=== PATIENT | female | born 1985 | race Caucasian/White ===

== ENCOUNTER 2023-12-15 13:20 | Inpatient (IN) | payer OTHER ==
[2023-12-15 13:27] VITALS: BMI 22.3
[2023-12-15] MEDS ORDERED: BISMUTH SUBSALICYLATE 524 MG/30 ML PO PRN (14:39)
[2023-12-15] MEDS ORDERED: POLYETHYLENE GLYCOL (HEALTHYLAX) 3350 17 GM PACKET PO PRN (14:39)
[2023-12-15] MEDS ORDERED: MAG HYDROX/AL HYDROX/SIMETH 30 ML UNIT-DOSE CUP PO PRN (14:39)
[2023-12-15] MEDS ORDERED: traZODone HCL 50 MG TABLET (FP) PO PRN ×2 (14:39→23:11)
[2023-12-15] MEDS ORDERED: NALOXONE HCL 0.4 MG/ML VIAL IM PRN (14:39)
[2023-12-15] MEDS ORDERED: MAGNESIUM HYDROX 2400MG/30ML ORAL SUSPENSION 30 ML CUP PO PRN (14:39)
[2023-12-15] MEDS ORDERED: NALOXONE HCL (KLOXXADO) 8 MG SPRAY NS PRN (14:39)
[2023-12-15] MEDS ORDERED: guaiFENesin 600 MG TABLET.ER (FP) PO PRN (14:39)
[2023-12-15] MEDS ORDERED: BENZOCAINE/MENTHOL (CHLORASEPTIC ) LOZENGE MM PRN (14:39)
[2023-12-15] MEDS ORDERED: hydrOXYzine PAMOATE 25 MG CAPSULE (FP) PO PRN (14:39)
[2023-12-15] MEDS ORDERED: IBUPROFEN 400 MG TABLET (FP) PO PRN (14:39)
[2023-12-15] MEDS ORDERED: LOPERAMIDE HCL 2 MG CAPSULE PO PRN (14:39)
[2023-12-15] MEDS ORDERED: BENZONATATE 200 MG CAPSULE PO PRN (14:39)
[2023-12-15] MEDS ORDERED: EPINEPHrine/PF 1 MG/1 ML (1:1,000) AMPULE IM PRN ×2 (14:44→15:40)
[2023-12-15] MEDS: BUPRENORPHINE/NALOXONE 0.5 MG/0.125 MG FILM SL ONE ×2 (15:23→22:35)
[2023-12-15] MEDS: methaDONE HCL 10 MG TABLET (FOR DETOX USE ONLY) PO ONE (15:23)
[2023-12-15] MEDS: diphenhydrAMINE HCL 25 MG CAPSULE (FP) PO SCH (16:02)
[2023-12-15] MEDS: PRENATAL VITAMINS W/ FOLIC ACID TABLET (FP) PO SCH (16:02)
[2023-12-15] MEDS: cloNIDine HCL 0.1 MG TABLET PO SCH (17:42)
[2023-12-15] MEDS: THIAMINE HCL 100 MG TABLET (FP) PO SCH (22:35)
[2023-12-15] MEDS: MELATONIN 5 MG TABLETS PO SCH (22:40)
[2023-12-16] MEDS: BUPRENORPHINE/NALOXONE 0.5 MG/0.125 MG FILM SL SCH (09:34)
[2023-12-16] MEDS: METHOCARBAMOL 500 MG TABLET PO PRN (14:56)
[2023-12-16] MEDS: IBUPROFEN 600 MG TABLET (FP) PO PRN (17:53)
[2023-12-17] MEDS: ACETAMINOPHEN 325 MG TABLET (FP) PO PRN (00:15)
[2023-12-17] MEDS: MELATONIN 5 MG TABLETS PO ONE (03:30)
[2023-12-17] MEDS: methaDONE HCL 10 MG TABLET (FOR DETOX USE ONLY) PO ONE (09:00)
[2023-12-17] MEDS: BUPRENORPHINE/NALOXONE 2 MG/0.5 MG FILM PACKET SL SCH (09:05)
[2023-12-17] MEDS ORDERED: methaDONE HCL 10 MG TABLET (FOR DETOX USE ONLY) PO ONE (10:00)
[2023-12-17] MEDS: diphenhydrAMINE HCL 25 MG CAPSULE (FP) PO PRN (14:21)
[2023-12-18] MEDS: DICYCLOMINE HCL 10 MG CAPSULE PO PRN (05:28)
[2023-12-18] MEDS: BUPRENORPHINE/NALOXONE 4 MG/1 MG FILM PACKET SL SCH (09:59)
[2023-12-19] MEDS: methaDONE HCL 10 MG TABLET (FOR DETOX USE ONLY) PO ONE (05:30)
[2023-12-19] MEDS: BUPRENORPHINE/NALOXONE 8 MG/2 MG FILM PACKET SL SCH ×2 (09:02→13:31)
[2023-12-19] MEDS ORDERED: methaDONE HCL 10 MG TABLET (FOR DETOX USE ONLY) PO ONE (10:00)
[2023-12-19 12:34] LABS: BASO % 0.7 % (0-2.0); EOS % 0.9 % (0-4.5); HEMATOCRIT 35.5 % (32.4-45.2); HEMOGLOBIN 11.5 GM/dL (10.7-15.3); LYMPH % 24.4 % (8-40); MCHC 32.3 g/dl (32.0-36.0); MEAN CELL VOLUME 80.5 fl (80-96); MONO % 7.3 % (3.8-10.2); NEUT % 66.7 % (42.8-82.8); PLATELET COUNT 269 10^3/uL (134-434); RBC 4.41 M/mm3 (3.60-5.2); RDW 15.2 % (11.6-15.6); WHITE BLOOD COUNT 3.8 K/mm3 (4.0-10.0)
[2023-12-19 13:19] LABS: POTASSIUM 4.3 mmol/L (3.5-5.1)
[2023-12-19 13:22] LABS: BLOOD UREA NITROGEN 13.2 mg/dL (7-18); CALCIUM 8.5 mg/dL (8.5-10.1)
[2023-12-19 13:25] LABS: CREATININE 0.6 mg/dL (0.55-1.3)
[2023-12-19 13:26] LABS: BILIRUBIN,TOTAL 0.2 mg/dL (0.2-1)
[2023-12-19 13:27] LABS: TOT PROT 8.4 g/dl (6.4-8.2)
[2023-12-20] MEDS ORDERED: BUPRENORPHINE/NALOXONE 8 MG/2 MG FILM PACKET SL ONE (10:00)
[2023-12-20] MEDS: BUPRENORPHINE/NALOXONE 8 MG/2 MG FILM PACKET SL ONE ×2 (13:42→18:32)
[2023-12-20] MEDS: ONDANSETRON *ODT* 4 MG TABLET SL PRN (18:51)
[2023-12-21] MEDS: BUPRENORPHINE/NALOXONE 12 MG-3 MG SL FILM PACKET SL ONE (05:31)
[2023-12-21] MEDS ORDERED: BUPRENORPHINE/NALOXONE 8 MG/2 MG FILM PACKET SL ONE (06:00)
[2023-12-21 07:12] VITALS: BP 149/75; PULSE 81; RESP 16; TEMP 97.6
== END 2023-12-21 09:17 | disposition home or self-care (01) | DRG 773 ==
LOC: YASAS 13:20 → Y6N 15:11
PROVIDERS: ADMIT Allergy & Immunology; ATTEND Surgery
PROC: HZ2ZZZZ Detoxification Services for Substance Abuse Treatment (ICD-10-PCS; principal; 2023-12-15)
DX: F11.23 Opioid dependence with withdrawal (principal); F14.20 Cocaine dependence, uncomplicated; F16.20 Hallucinogen dependence, uncomplicated; F19.280 Other psychoactive substance dependence with psychoactive substance-induced anxiety disorder; F19.24 Other psychoactive substance dependence with psychoactive substance-induced mood disorder; F43.10 Post-traumatic stress disorder, unspecified; G47.00 Insomnia, unspecified; M54.50 Low back pain, unspecified; G89.29 Other chronic pain; R76.8 Other specified abnormal immunological findings in serum; Z87.891 Personal history of nicotine dependence; Z91.410 Personal history of adult physical and sexual abuse; Z59.00 Homelessness unspecified; Z88.8 Allergy status to other drugs, medicaments and biological substances
CPT/HCPCS: 36415; 80053; 80305; 80307; 81025; 85025; 86780; 86803; 87522; 93005; 93010; Q0162

== ENCOUNTER 2024-02-09 15:00 | Inpatient (IN) | payer OTHER ==
[2024-02-09 15:24] VITALS: BMI 20.3
[2024-02-09] MEDS ORDERED: ACETAMINOPHEN 325 MG TABLET (FP) PO PRN (15:39)
[2024-02-09] MEDS ORDERED: NALOXONE HCL (KLOXXADO) 8 MG SPRAY NS PRN (15:39)
[2024-02-09] MEDS ORDERED: DICYCLOMINE HCL 10 MG CAPSULE PO PRN (15:39)
[2024-02-09] MEDS ORDERED: BENZONATATE 200 MG CAPSULE PO PRN (15:39)
[2024-02-09] MEDS ORDERED: IBUPROFEN 400 MG TABLET (FP) PO PRN (15:39)
[2024-02-09] MEDS ORDERED: BENZOCAINE/MENTHOL (CHLORASEPTIC ) LOZENGE MM PRN (15:39)
[2024-02-09] MEDS ORDERED: MAG HYDROX/AL HYDROX/SIMETH 30 ML UNIT-DOSE CUP PO PRN (15:39)
[2024-02-09] MEDS ORDERED: MAGNESIUM HYDROX 2400MG/30ML ORAL SUSPENSION 30 ML CUP PO PRN (15:39)
[2024-02-09] MEDS ORDERED: POLYETHYLENE GLYCOL (HEALTHYLAX) 3350 17 GM PACKET PO PRN (15:39)
[2024-02-09] MEDS ORDERED: guaiFENesin 600 MG TABLET.ER (FP) PO PRN (15:39)
[2024-02-09] MEDS ORDERED: IBUPROFEN 600 MG TABLET (FP) PO PRN (15:39)
[2024-02-09] MEDS ORDERED: NALOXONE HCL 0.4 MG/ML VIAL IM PRN (15:39)
[2024-02-09] MEDS ORDERED: PRENATAL VITAMINS W/ FOLIC ACID TABLET (FP) PO ONE (16:42)
[2024-02-09] MEDS ORDERED: methaDONE HCL 10 MG TABLET (FOR DETOX USE ONLY) ONE (16:42)
[2024-02-09] MEDS: PRENATAL VITAMINS W/ FOLIC ACID TABLET (FP) PO SCH (16:53)
[2024-02-09] MEDS: methaDONE HCL 10 MG TABLET PO ONE (16:53)
[2024-02-09] MEDS: hydrOXYzine PAMOATE 25 MG CAPSULE (FP) PO PRN (17:36)
[2024-02-09] MEDS: cloNIDine HCL 0.1 MG TABLET PO SCH (17:36)
[2024-02-09] MEDS: NICOTINE 21 MG/24 HOURS TOPICAL PATCH TD SCH (17:36)
[2024-02-09] MEDS: METHOCARBAMOL 500 MG TABLET PO PRN (17:37)
[2024-02-09] MEDS ORDERED: methaDONE HCL 10 MG TABLET PO PRN (17:39)
[2024-02-09] MEDS: MELATONIN 5 MG TABLETS PO SCH (22:11)
[2024-02-09] MEDS: THIAMINE 100 MG TABLET PO SCH (22:11)
[2024-02-10] MEDS: methaDONE 40 MG, methaDONE 10 MG PO ONE (09:54)
[2024-02-10] MEDS: diazePAM 5 MG TABLET PO PRN (10:50)
[2024-02-11] MEDS: cloNIDine HCL 0.1 MG TABLET PO PRN (05:48)
[2024-02-11] MEDS: methaDONE 40 MG, methaDONE 20 MG PO ONE (09:05)
[2024-02-11 12:07] LABS: POTASSIUM 3.4 mmol/L (3.5-5.1)
[2024-02-11 12:09] LABS: CALCIUM 8.6 mg/dL (8.5-10.1)
[2024-02-11 12:10] LABS: ALBUMIN 2.5 g/dl (3.4-5.0); BLOOD UREA NITROGEN 11.8 mg/dL (7-18)
[2024-02-11 12:13] LABS: CREATININE 0.7 mg/dL (0.55-1.3)
[2024-02-11 12:14] LABS: BILIRUBIN,TOTAL 0.2 mg/dL (0.2-1); TOT PROT 7.2 g/dl (6.4-8.2)
[2024-02-11] MEDS: POTASSIUM CHLORIDE ORAL LIQUID 20 MEQ/15 ML PO ONE (18:17)
[2024-02-12] MEDS: methaDONE 40 MG, methaDONE 30 MG PO ONE (09:08)
[2024-02-12] MEDS: LOPERAMIDE HCL 2 MG CAPSULE PO PRN (09:27)
[2024-02-12] MEDS: HYDROCORTISONE 1% TOPICAL CREAM 30 GM TUBE TP SCH (13:53)
[2024-02-13] MEDS: ONDANSETRON *ODT* 4 MG TABLET SL PRN (01:17)
[2024-02-13] MEDS: methaDONE HCL 40 MG DISPERSABLE TABLET PO ONE (09:27)
[2024-02-13] MEDS: diazePAM 5 MG TABLET PO ONE (13:45)
[2024-02-13] MEDS: BISMUTH SUBSALICYLATE 524 MG/30 ML PO PRN (20:44)
[2024-02-13] MEDS: cloNIDine HCL 0.1 MG TABLET PO PRN (22:07)
[2024-02-14] MEDS: methaDONE 80 MG, methaDONE 10 MG PO ONE (09:22)
[2024-02-14] MEDS: CLINDAMYCIN HCL 150 MG CAPSULE (FP) PO SCH (13:05)
[2024-02-14 13:14] VITALS: BP 101/54; PULSE 82; RESP 16; TEMP 97.1
== END 2024-02-14 13:20 | disposition other institution (70) | DRG 773 ==
LOC: YASAS 15:00 → Y6N 16:19
PROVIDERS: ADMIT Allergy & Immunology; ATTEND Surgery
PROC: HZ2ZZZZ Detoxification Services for Substance Abuse Treatment (ICD-10-PCS; principal; 2024-02-09)
DX: F11.23 Opioid dependence with withdrawal (principal); F14.20 Cocaine dependence, uncomplicated; F19.282 Other psychoactive substance dependence with psychoactive substance-induced sleep disorder; F19.280 Other psychoactive substance dependence with psychoactive substance-induced anxiety disorder; F41.9 Anxiety disorder, unspecified; E87.6 Hypokalemia; L02.414 Cutaneous abscess of left upper limb; M54.2 Cervicalgia; M54.50 Low back pain, unspecified; G89.29 Other chronic pain; Z87.891 Personal history of nicotine dependence; Z88.0 Allergy status to penicillin; Z88.8 Allergy status to other drugs, medicaments and biological substances
CPT/HCPCS: 36415; 80053; 80305; 80307; 81025; 84132; 86780; 87811; 93005; 93010; Q0162

== ENCOUNTER 2024-02-14 13:37 | Inpatient (IN) | payer OTHER ==
[2024-02-14] MEDS ORDERED: POLYETHYLENE GLYCOL (HEALTHYLAX) 3350 17 GM PACKET PO PRN (16:04)
[2024-02-14] MEDS ORDERED: P-EPHED 60MG/TRIPROLIDI 2.5MG TABLET PO PRN (16:04)
[2024-02-14] MEDS ORDERED: BENZONATATE 200 MG CAPSULE PO PRN (16:04)
[2024-02-14] MEDS ORDERED: NALOXONE (NARCAN) HCL 4 MG/0.1 ML SPRAY NS PRN (16:04)
[2024-02-14] MEDS ORDERED: guaiFENesin 600 MG TABLET.ER (FP) PO PRN (16:04)
[2024-02-14] MEDS ORDERED: NALOXONE HCL 0.4 MG/ML VIAL IVPUSH PRN (16:04)
[2024-02-14] MEDS ORDERED: ACETAMINOPHEN 325 MG TABLET (FP) PO PRN (16:04)
[2024-02-14] MEDS ORDERED: BENZOCAINE/MENTHOL (CHLORASEPTIC ) LOZENGE MM PRN (16:04)
[2024-02-14] MEDS ORDERED: MAGNESIUM HYDROX 2400MG/30ML ORAL SUSPENSION 30 ML CUP PO PRN (16:04)
[2024-02-14] MEDS ORDERED: DOCUSATE SODIUM 100 MG CAPSULE (FP) PO PRN (16:04)
[2024-02-14] MEDS ORDERED: NICOTINE 21 MG/24 HOURS TOPICAL PATCH TD PRN (16:39)
[2024-02-14] MEDS: OLANZapine 5 MG TABLET PO ONE (17:40)
[2024-02-14] MEDS: CLINDAMYCIN HCL 150 MG CAPSULE (FP) PO SCH (17:48)
[2024-02-14] MEDS: MELATONIN 5 MG TABLETS PO SCH (21:12)
[2024-02-14] MEDS: THIAMINE 100 MG TABLET PO SCH (21:13)
[2024-02-14] MEDS: OLANZapine 5 MG TABLET PO SCH (21:13)
[2024-02-15] MEDS ORDERED: methaDONE HCL 10 MG TABLET PO SCH (06:00)
[2024-02-15] MEDS: methaDONE 80 MG, methaDONE 10 MG PO SCH (06:25)
[2024-02-15] MEDS: hydrOXYzine PAMOATE 25 MG CAPSULE (FP) PO PRN (06:26)
[2024-02-15] MEDS: METHOCARBAMOL 500 MG TABLET PO PRN (10:46)
[2024-02-15] MEDS: PRENATAL VITAMINS W/ FOLIC ACID TABLET (FP) PO SCH (10:46)
[2024-02-15] MEDS ORDERED: OLANZapine 5 MG TABLET PO SCH (10:47)
[2024-02-15] MEDS: LOPERAMIDE HCL 2 MG CAPSULE PO PRN (10:51)
[2024-02-15] MEDS: CLINDAMYCIN PHOSPHATE 1% TOPICAL GEL 30 GM TUBE TP SCH (16:02)
[2024-02-15] MEDS: hydrOXYzine PAMOATE 50 MG CAPSULE (FP) PO PRN (17:23)
[2024-02-15] MEDS: BACLOFEN 10 MG TABLET (FP) PO SCH (21:12)
[2024-02-15] MEDS: OLANZapine 10 MG TABLET PO SCH (21:12)
[2024-02-15] MEDS: MAG HYDROX/AL HYDROX/SIMETH 30 ML UNIT-DOSE CUP PO PRN (23:28)
[2024-02-16 10:26] LABS: BASO % 0.3 % (0-2.0); EOS % 0.6 % (0-4.5); HEMATOCRIT 30.6 % (32.4-45.2); HEMOGLOBIN 10.4 GM/dL (10.7-15.3); LYMPH % 36.7 % (8-40); MCH 27.1 pg (25.7-33.7); MCHC 33.9 g/dl (32.0-36.0); MEAN PLT VOLUME 7.7 fl (7.5-11.1); MONO % 11.1 % (3.8-10.2); NEUT % 51.3 % (42.8-82.8); PLATELET COUNT 305 10^3/uL (134-434); RBC 3.83 M/mm3 (3.60-5.2); RDW 16.5 % (11.6-15.6)
[2024-02-16] MEDS: BISMUTH SUBSALICYLATE 262 MG/15 ML BTL PO PRN (17:38)
[2024-02-16] MEDS: IBUPROFEN 600 MG TABLET (FP) PO PRN (21:37)
[2024-02-16] MEDS: OLANZapine 7.5 MG TABLET PO SCH (21:42)
[2024-02-17] MEDS: GABAPENTIN 100 MG CAPSULE PO SCH (21:07)
[2024-02-22] MEDS: OLANZapine 10 MG TABLET PO SCH (22:03)
[2024-02-24] MEDS: GABAPENTIN 300 MG CAPSULE PO SCH (21:06)
[2024-02-25] MEDS: GABAPENTIN 100 MG CAPSULE PO SCH (05:46)
[2024-02-26] MEDS: IBUPROFEN 400 MG TABLET (FP) PO PRN (10:38)
[2024-02-26] MEDS: CLINDAMYCIN HCL 150 MG CAPSULE (FP) PO SCH (18:06)
[2024-02-26] MEDS: AZITHROMYCIN 250 MG TABLET PO ONE (22:35)
[2024-02-27] MEDS: AZITHROMYCIN 250 MG TABLET PO SCH (10:27)
[2024-03-02 00:28] LABS: HIV INTERPRETATION PRESUMPTIVE POSITIVE (NEGATIVE)
[2024-03-08 06:41] VITALS: RESP 18
[2024-03-12 06:50] VITALS: BP 106/67; PULSE 87; TEMP 97.1
== END 2024-03-12 10:15 | disposition home or self-care (01) | DRG 772 ==
LOC: YASAS 13:37 → Y5N 13:38
PROVIDERS: ADMIT Allergy & Immunology; ATTEND Psychiatry & Neurology Pain Medicine
PROC: HZ42ZZZ Group Counseling for Substance Abuse Treatment, Cognitive-Behavioral (ICD-10-PCS; principal; 2024-02-14)
DX: F11.20 Opioid dependence, uncomplicated (principal); F14.20 Cocaine dependence, uncomplicated; F17.210 Nicotine dependence, cigarettes, uncomplicated; F20.0 Paranoid schizophrenia; F22 Delusional disorders; F41.9 Anxiety disorder, unspecified; F32.A Depression, unspecified; F43.10 Post-traumatic stress disorder, unspecified; Z21 Asymptomatic human immunodeficiency virus [HIV] infection status; H66.91 Otitis media, unspecified, right ear; K21.9 Gastro-esophageal reflux disease without esophagitis; L02.414 Cutaneous abscess of left upper limb; M54.50 Low back pain, unspecified; G89.29 Other chronic pain; R76.8 Other specified abnormal immunological findings in serum; Z59.01 Sheltered homelessness; S09.8XXD Other specified injuries of head, subsequent encounter; S09.93XD Unspecified injury of face, subsequent encounter; W19.XXXD Unspecified fall, subsequent encounter
CPT/HCPCS: 36415; 85025; 86359; 86360; 87389; 87536; 93005; 93010; J0475

== ENCOUNTER 2025-02-28 09:25 | Inpatient (IN) | payer OTHER ==
[2025-02-28 09:39] VITALS: BMI 29.1
[2025-02-28] MEDS ORDERED: MAG HYDROX/AL HYDROX/SIMETH 30 ML UNIT-DOSE CUP PO PRN (09:57)
[2025-02-28] MEDS ORDERED: POLYETHYLENE GLYCOL (HEALTHYLAX) 3350 17 GM PACKET PO PRN (09:57)
[2025-02-28] MEDS ORDERED: ACETAMINOPHEN 325 MG TABLET (FP) PO PRN (09:57)
[2025-02-28] MEDS ORDERED: guaiFENesin 600 MG TABLET.ER (FP) PO PRN (09:57)
[2025-02-28] MEDS ORDERED: BISMUTH SUBSALICYLATE 262 MG/15 ML BTL PO PRN (09:57)
[2025-02-28] MEDS ORDERED: IBUPROFEN 400 MG TABLET (FP) PO PRN (09:57)
[2025-02-28] MEDS ORDERED: BENZONATATE 200 MG CAPSULE PO PRN (09:57)
[2025-02-28] MEDS ORDERED: MAGNESIUM HYDROX 2400MG/30ML ORAL SUSPENSION 30 ML CUP PO PRN (09:57)
[2025-02-28] MEDS ORDERED: LOPERAMIDE HCL 2 MG CAPSULE PO PRN (09:57)
[2025-02-28] MEDS ORDERED: NALOXONE (NARCAN) HCL 4 MG/0.1 ML SPRAY NS PRN (09:57)
[2025-02-28] MEDS ORDERED: hydrOXYzine PAMOATE 25 MG CAPSULE (FP) PO PRN (09:57)
[2025-02-28] MEDS ORDERED: BENZOCAINE/MENTHOL (CHLORASEPTIC ) LOZENGE MM PRN (09:57)
[2025-02-28] MEDS ORDERED: DICYCLOMINE HCL 10 MG CAPSULE PO PRN (09:57)
[2025-02-28] MEDS ORDERED: diazePAM 5 MG TABLET ONE (10:41)
[2025-02-28] MEDS ORDERED: levETIRAcetam 500 MG TABLET (FP) PO ONE (10:42)
[2025-02-28] MEDS ORDERED: methaDONE HCL 10 MG TABLET (FOR DETOX USE ONLY) ONE (10:42)
[2025-02-28] MEDS ORDERED: PRENATAL VITAMINS W/ FOLIC ACID TABLET (FP) PO ONE (10:43)
[2025-02-28] MEDS ORDERED: cloNIDine HCL 0.1 MG TABLET ONE (10:43)
[2025-02-28] MEDS: PRENATAL VITAMINS W/ FOLIC ACID TABLET (FP) PO SCH (10:45)
[2025-02-28] MEDS: cloNIDine HCL 0.1 MG TABLET PO SCH (10:45)
[2025-02-28] MEDS: levETIRAcetam 500 MG TABLET (FP) PO SCH (10:45)
[2025-02-28] MEDS: diazePAM 5 MG TABLET PO SCH (10:46)
[2025-02-28] MEDS: methaDONE HCL 10 MG TABLET PO ONE (10:46)
[2025-02-28] MEDS: ACAMPROSATE CALCIUM 333 MG TABLET.DR PO SCH (13:35)
[2025-02-28] MEDS: methaDONE 80 MG, methaDONE 20 MG PO ONE (13:47)
[2025-02-28] MEDS: diazePAM 5 MG TABLET PO PRN (19:08)
[2025-02-28] MEDS: THIAMINE 100 MG TABLET PO SCH (22:43)
[2025-02-28] MEDS: MELATONIN 5 MG TABLETS PO SCH (22:44)
[2025-03-01] MEDS: methaDONE 80 MG, methaDONE 20 MG PO SCH (06:11)
[2025-03-01] MEDS: ONDANSETRON *ODT* 4 MG TABLET SL PRN (06:13)
[2025-03-01] MEDS: methaDONE HCL 10 MG TABLET PO ONE (09:13)
[2025-03-01] MEDS: ARIPiprazole 5 MG TABLET PO SCH (09:59)
[2025-03-01] MEDS: FLUoxetine HCL 20 MG CAPSULE PO SCH (09:59)
[2025-03-01] MEDS: diphenhydrAMINE HCL 50 MG CAPSULE PO SCH (22:08)
[2025-03-02] MEDS: diazePAM 5 MG TABLET PO SCH (05:56)
[2025-03-02] MEDS: methaDONE HCL 10 MG TABLET PO ONE (09:18)
[2025-03-02] MEDS: cloNIDine HCL 0.1 MG TABLET PO PRN (09:32)
[2025-03-02] MEDS: METHOCARBAMOL 500 MG TABLET PO PRN (15:01)
[2025-03-02] MEDS: IBUPROFEN 600 MG TABLET (FP) PO PRN (22:34)
[2025-03-03] MEDS: diazePAM 5 MG TABLET PO SCH (06:07)
[2025-03-03] MEDS: methaDONE HCL 40 MG DISPERSABLE TABLET PO ONE (09:53)
[2025-03-03 11:17] LABS: ABSOLUTE IMMATURE GRANULOCYTES 0.02 x10^3/uL (0.0-0.031); BASOPHILS # 0.03 x10^3/uL (0.01-0.08); EOSINOPHIL % 1.3 % (0.7-5.8); EOSINOPHILS # 0.06 x10^3/uL (0.04-0.36); HEMATOCRIT 35.4 % (34.1-44.9); HEMOGLOBIN 11.3 g/dL (11.2-15.7); MCHC 31.9 g/dl (32.2-35.5); MEAN CELL VOLUME 88.5 fl (79.4-94.8); MEAN PLT VOLUME 9.6 fl (9.4-12.3); MONOCYTE # 0.29 x10^3/uL (0.24-0.86); MONOCYTE % 6.2 % (4.7-12.5); PLATELET COUNT 291 x10^3/uL (182-369); RDW 13.4 % (12.1-16.8)
[2025-03-03 11:19] LABS: POTASSIUM 4.5 mmol/L (3.5-5.1)
[2025-03-03 11:31] LABS: ALBUMIN 3.2 g/dl (3.4-5.0)
[2025-03-03 11:33] LABS: BLOOD UREA NITROGEN 12.4 mg/dL (7-18)
[2025-03-03 11:37] LABS: BILIRUBIN,TOTAL 0.2 mg/dL (0.2-1); CREATININE 0.7 mg/dL (0.55-1.3); TOT PROT 7.9 g/dl (6.4-8.2)
[2025-03-04] MEDS: diazePAM 5 MG TABLET PO ONE (05:42)
[2025-03-04] MEDS: methaDONE 40 MG, methaDONE 10 MG PO ONE (09:55)
[2025-03-04] MEDS: BICTEGRAV/EMTRICIT/TENOFOV (BIKTARVY) 50-200-25 MG TABLET PO SCH (15:06)
[2025-03-05 09:14] VITALS: RESP 18
[2025-03-05] MEDS: methaDONE 40 MG, methaDONE 20 MG PO ONE (09:37)
[2025-03-05 12:48] VITALS: BP 100/80; PULSE 83; TEMP 98.4
== END 2025-03-05 12:41 | disposition other institution (70) | DRG 773 ==
LOC: YASAS 09:25 → Y6N 11:17
PROVIDERS: ADMIT Allergy & Immunology; ATTEND Allergy & Immunology
PROC: HZ2ZZZZ Detoxification Services for Substance Abuse Treatment (ICD-10-PCS; principal; 2025-02-28)
DX: F11.23 Opioid dependence with withdrawal (principal); F10.230 Alcohol dependence with withdrawal, uncomplicated; F14.20 Cocaine dependence, uncomplicated; F12.20 Cannabis dependence, uncomplicated; F17.210 Nicotine dependence, cigarettes, uncomplicated; F19.282 Other psychoactive substance dependence with psychoactive substance-induced sleep disorder; F22 Delusional disorders; F25.9 Schizoaffective disorder, unspecified; F43.10 Post-traumatic stress disorder, unspecified; F32.A Depression, unspecified; Z21 Asymptomatic human immunodeficiency virus [HIV] infection status; M54.50 Low back pain, unspecified; G89.29 Other chronic pain; Z88.0 Allergy status to penicillin; Z79.899 Other long term (current) drug therapy; Z88.8 Allergy status to other drugs, medicaments and biological substances
CPT/HCPCS: 36415; 80053; 80305; 80307; 81025; 82140; 85025; 86780; 93005; 93010; Q0162